=== PATIENT | female | born 1995 ===

== ENCOUNTER 2017-08-19 11:42 | Emergency (ER) | payer BC ==
--- NOTE | 2017-08-19 12:00 | ER Report ---
History and Physical Time Seen By MD: 12:00 HPI/PRUDENCE CHIEF COMPLAINT: Left wrist pain HISTORY OF PRESENT ILLNESS: 20-year-old female patient presents to emergency room with complaint of left wrist pain. Patient states she was snowboarding this morning, she states she is not very good and fell backwards trying to catch herself. She states that since incident having significant amounts of pain to the left wrist. She states she is unable to move her fingers due to the pain. Patient does have good sensation to touch. Patient has received morphine in route to the emergency room, however she rates her pain a 10 out of 10 at this time. REVIEW OF SYSTEMS: Respiratory: No cough, no dyspnea. Cardiovascular: No chest pain, no palpitations. Gastrointestinal: No vomiting, no abdominal pain. Musculoskeletal: As noted above Allergies: Coded Allergies: Penicillins (Verified Allergy, Intermediate, 08/19/17) Home Meds Active Scripts Oxycodone Hcl/Acetaminophen (PERCOCET 5-325 MG TABLET) 1 Each Tablet, 1 EACH PO Q4-6H Y for PAIN, #20 TAB Prov:KIRBY ROMNAO 08/19/17 Past Medical/Surgical History Patient has a past medical history of alcohol use. Patient has surgical history of tonsillectomy. Reviewed Nurses Notes: Yes Constitutional Vital Sign - Last 24 Hours 08/19/17 08/19/17 08/19/17 08/19/17 11:56 11:57 11:59 12:11 Temp 98.4 Pulse 82 ??? Resp 26 B/P (MAP) 120/101 120/101 (107) 153/102 (119) Pulse Ox 100 O2 Delivery Room Air 08/19/17 08/19/17 08/19/17 08/19/17 12:12 12:30 13:00 13:05 Pulse 75 ??? Resp 10 B/P (MAP) 157/80 (105) 122/82 (95) Pulse Ox 70 08/19/17 08/19/17 08/19/17 08/19/17 13:10 13:15 13:17 13:20 Pulse 87 81 ??? Resp 16 24 13 B/P (MAP) 149/89 (109) 143/81 (101) Pulse Ox 98 99 98 08/19/17 08/19/17 08/19/17 08/19/17 13:25 13:30 13:35 13:40 Pulse 93 106 112 116 Resp 15 19 15 15 B/P (MAP) 155/100 (118) 163/100 (121) 167/107 (127) 173/110 (131) Pulse Ox 99 99 99 99 08/19/17 08/19/17 08/19/17 08/19/17 13:45 13:50 13:55 14:00 Pulse 115 102 115 88 Resp 19 26 35 14 B/P (MAP) 165/107 (126) 161/102 (121) 157/94 (115) Pulse Ox 96 96 08/19/17 08/19/17 08/19/17 08/19/17 14:05 14:10 14:15 14:47 Pulse 85 82 96 Resp 10 9 14 B/P (MAP) 143/91 (108) 135/77 (96) Pulse Ox 99 99 96 08/19/17 08/19/17 15:00 15:15 Pulse 75 91 Resp 9 15 B/P (MAP) 119/67 (84) 132/77 (95) Pulse Ox 97 95 Physical Exam General Appearance: The patient is alert, has no immediate need for airway protection and no current signs of toxicity. Respiratory: Chest is non tender, lungs are clear to auscultation. Cardiac: regular rate and rhythm Gastrointestinal: Abdomen is soft and non tender, no masses, bowel sounds normal. Musculoskeletal: Neck: Neck is supple and non tender. Patient has deformity of the proximal forearm, good sensation to touch to ulnar median and radial nerves. Patient is unable to move the left hand secondary to pain. Skin: No rashes or lesions. DIFFERENTIAL DIAGNOSIS: After history and physical exam differential diagnosis was considered for fracture, sprain, dislocation. Medical Decision Making Data Points Laboratory Hematology Test 08/19/17 14:08 Human Chorionic Gonadotropin, Qual Negative (NEGATIVE) Chemistry Test 08/19/17 14:08 Human Chorionic Gonadotropin, Qual Negative (NEGATIVE) EKG/Imaging Imaging Examination: WRIST LEFT W/O CONTRAST Comparison: Radiographs earlier the same day. History: intraarticular fracture Procedure: Multiplanar noncontrast CT left wrist. One of the following dose optimization techniques was utilized in the performance of this exam: Automated exposure control; adjustment of the mA and/ or kV according to the patient's size; or use of an iterative reconstruction technique. Specific details can be referenced in the facility's radiology CT exam operational policy. Findings: Distal left radial diametaphysiscomminuted and mildly displaced intra- articular fracture. Dominant transverse oblique fracture extends through the diametaphysis to the inferior margin of the distal radioulnar joint. Radioulnar joint space is mildly widened but there is no evidence of lucy malalignment. A dominant coronal oblique fracture plane involves the dorsal metaphyseal cortex and extends into the dorsal and ulnar margin of the articular surface. This results in2 mm of articular surface incongruity. Overall, there is approximately 25% shaft width dorsal displacement of the dominant distal fracture fragment with resultant neutral angulation of the radial articular surface. Radiocarpal and intercarpal alignment is maintained. There is a mildly displaced and comminuted fracture of the ulnar styloid. The visualized carpals are intact with no carpal fracture identified. Diffuse edema of the periarticular soft tissues likely with a small amount of fluid/hemorrhage in the distal radioulnar joint and radiocarpal joint. If there is a clinical concern for internal derangement of the wrist soft tissues this would be better characterized by MRI. IMPRESSION: 1. Distal left radial diametaphysis comminuted and displaced intra-articular fractures described above. 2. Mild widening of the distal radioulnar joint but no evidence of lucy subluxation. 3. Ulnar styloid mildly comminuted and displaced fracture. Report Dictated By: Kenny Sofia MD at 08/19/2017 2:56 PM Report E-Signed By: Kenny Sofia MD at 08/19/2017 3:05 PM WRIST LEFT 2 VIEW History: Post reduction COMPARISON: Radiographs obtained earlier same date. FINDINGS: Comminuted intra-articular fracture distal radius has mildly improved alignment status post reduction and cast placement. Ulnar styloid fracture unchanged. 3 views are provided. IMPRESSION: Mild improvement in the radius fracture status post reduction and cast placement. Report Dictated By: Mingo Sharif MD at 08/19/2017 1:56 PM Report E-Signed By: Mingo Sharif MD at 08/19/2017 1:58 PM WRIST LEFT MIN 3 VIEW HISTORY: Fall with pain, snowboarding. ADDITIONAL HISTORY: None. COMPARISON: None. FINDINGS: 3 views were obtained of the left wrist. There is an extensively comminuted fractures of the distal radius with intra-articular extension. There is radial displacement of the distal fracture fragments. Fracture is impacted and there is also dorsal angulation. Ulnar styloid fracture is also present. Although incompletely imaged, the scapholunate distance may be increased which could be indicative of a ligamentous injury. Soft tissue swelling is present. There is no radiopaque foreign body. IMPRESSION: 1. Comminuted intra-articular fracture of the distal radius with radial displacement and dorsal angulation of the distal fracture fragments. There is also impaction. 2. Ulnar styloid fracture. 3. Possible widening of the scapholunate interval which may be indicative of a ligamentous injury. 4. Soft tissue swelling. Report Dictated By: Cintia Lopes MD at 08/19/2017 12:35 PM Report E-Signed By: Cintia Lopes MD at 08/19/2017 12:37 PM ED Course/Re-evaluation ED Course Patient was admitted to an exam room, history and physical were obtained. Differential diagnoses were considered. On examination patient has obvious deformity to the left wrist, she has good sensation with the ulnar, median and radial nerve. Initially patient was unable to move fingers due to pain, however on reevaluation patient did have good movement of the fingers, however it did elicit significant amounts of pain. X-ray of the wrist was performed which showed significant fracture and dislocation of the distal radius, does go into the intra-articular areas. I discussed the case with Dr. Gillespie, orthopedist, who recommended reduction, placing in a sugar tong splint. I initially had thought that the patient was from [place] and planned on having her follow-up with the orthopedic group here. However I did find out that patient lives in [place]. The wrist was reduced after the patient was moderately sedated. There was noticeable improvement when looking at the wrist. The repeat x-ray shows mild improvement in alignment it did still have some dorsal angulation. Per Dr. Gillespie's recommendation a CT scan was performed of the wrist. Which showed significant fracture. Patient was awake, alert. She is feeling ready to go home at this time. She states her pain is significantly improved. Patient has good capillary refill and pulses. Patient will be discharged home to follow- up with orthopedics in of the [facility]. Patient verbalized understanding and agreement with plan. Procedure: Procedural sedation. A pre-sedation evaluation was completed on the patient at 1305. Patient is an appropriate candidate for procedural sedation. The risks of the sedation were discussed with the patient. A time out was completed. The patient was reevaluated immediately prior to initiation of sedation. The patient was sedated with propofol and ketamine. The patient was monitored with continuous pulse oximetry and quality assurance monitor chassis. There were no complications and no significant hypoxemia. I remained at the bedside for the sedation. The total time I spent in the procedural sedation was 15 minutes. Post sedation evaluation: Patient was alert and cooperative, hemodynamically stable with appropriate respiratory status, temperature and pain control without ongoing nausea and vomiting. Procedure: Splint placement. A sugar tong splint was applied. After application of the splint I re-examined the patient. The splint was adequately immobilizing the joint and distal to the splint the patient's circulation and sensation was intact. Decision to Disposition Date: Aug 19, 2017 Decision to Disposition Time: 15:14 Depart Departure Latest Vital Signs Vital Signs Date Time Temp Pulse Resp B/P (MAP) Pulse Ox O2 Delivery O2 Flow Rate FiO2 08/19/17 15:15 91 15 132/77 (95) 95 08/19/17 11:56 98.4 Room Air Impression: Primary Impression: Left wrist fracture Condition: Improved Disposition: HOME OR SELF-CARE New Scripts Oxycodone Hcl/Acetaminophen (PERCOCET 5-325 MG TABLET) 1 Each Tablet 1 EACH PO Q4-6H Y for PAIN, #20 TAB Prov: KIRBY ROMANO 08/19/17 Patient Instructions: Wrist Fracture in Adults (ED) Additional Instructions: Limit activity by pain. Ice the wrist through the splint; 2-3 times a day for 20-30 minutes. If the splint is feeling too tight you may loosen the jessica wrap and rewrap it. Follow up with [facility], call tomorrow to make an appointment. [facility] [address] [place], [place] Keep the splint dry, wrap it with a bag and tape to keep the water out. Return to the ER with uncontrollable pain or numbness to the hand. You may take Ibuprofen as needed for pain in addition to the pain medication. Don't take any additional Tylenol while on the pain medication. Problem Qualifiers Primary Impression: Left wrist fracture Encounter type: initial encounter Fracture type: closed Qualified Codes: S62.102A - Fracture of unspecified carpal bone, left wrist, initial encounter for closed fracture KIRBY ROMANO Aug 19, 2017 12:00
[2017-08-19] MEDS ORDERED: NS(*) 0.9% 1000 ML BAG 1,000 ML IV ONE (12:05)
[2017-08-19] MEDS ORDERED: HYDROmorphone(ER ONLY) 1 MG/ML IVP ONE (12:05)
--- NOTE | 2017-08-19 12:41 | RADIOLOGY IMAGING REPORT ---
FACILITY: [facility] [place] PATIENT NAME: Jeanna Griffiths : 1995 MR: [id number] V: [id number] EXAM DATE: ORDERING PHYSICIAN: KIRBY ROMANO TECHNOLOGIST: Location: [facility] [place] Patient: Jeanna Griffiths : 1995 Visit/Account:[id number] Date of Sevice: 08/19/2017 WRIST LEFT MIN 3 VIEW HISTORY: Fall with pain, snowboarding. ADDITIONAL HISTORY: None. COMPARISON: None. FINDINGS: 3 views were obtained of the left wrist. There is an extensively comminuted fractures of the distal r adius with intra-articular extension. There is radial displacement of the distal fracture fragments. Fracture is impacted and there is also dorsal angulation. Ulnar styloid fracture is also present. Although incompletely imaged, the scapholunate distance may be increased which could be indicative of a ligamentous injury. Soft tissue swelling is present. There is no radiopaque foreign body. IMPRESSION: 1. Comminuted intra-articular fracture of the distal radius with radial displacement and dorsal angul ation of the distal fracture fragments. There is also impaction. 2. Ulnar styloid fracture. 3. Possible widening of the scapholunate interval which may be indicative of a ligamentous injury. 4. Soft tissue swelling. Report Dictated By: Cintia Lopes MD at 08/19/2017 12:35 PM Report E-Signed By: Cintia Lopes MD at 08/19/2017 12:37 PM WSN:[id number]
[2017-08-19] MEDS ORDERED: LORazepam 2 MG/ML VIAL IVP ONE (13:05)
[2017-08-19] MEDS ORDERED: ONDANSETRON 4 MG/2 ML VIAL IVP ONE (13:05)
[2017-08-19] MEDS ORDERED: PROPOFOL EMUL 10MG/ML 20 ML VL IVP ONE (13:05)
[2017-08-19] MEDS ORDERED: KETAMINE HCL 500 MG/5 ML VIAL IVP ONE (13:05)
--- NOTE | 2017-08-19 14:02 | RADIOLOGY IMAGING REPORT ---
FACILITY: [facility] PATIENT NAME: Jeanna Griffiths : 1995 MR: [id number] V: [id number] EXAM DATE: ORDERING PHYSICIAN: KIRBY ROMANO TECHNOLOGIST: Location: [facility] - [place] Patient: Jeanna Griffiths : 1995 Visit/Account:[id number] Date of Sevice: 08/19/2017 WRIST LEFT 2 VIEW History: Post reduction COMPARISON: Radiographs obtained earlier same date. FINDINGS: Comminuted intra-articular fracture distal radius has mildly improved alignment status post reduction and cast placement. Ulnar styloid fracture unchanged. 3 views are provided. IMPRESSION: Mild improvement in the radius fracture status post reduction and cast placement. Report Dictated By: Mingo Sharif MD at 08/19/2017 1:56 PM Report E-Signed By: Mingo Sharif MD at 08/19/2017 1:58 PM WSN:[id number]
--- NOTE | 2017-08-19 15:09 | RADIOLOGY IMAGING REPORT ---
FACILITY: [facility] - [place] PATIENT NAME: Jeanna Griffiths : 1995 MR: [id number] V: [id number] EXAM DATE: [id number] ORDERING PHYSICIAN: KIRBY ROMANO TECHNOLOGIST: Location: [facility] [place] Patient: Jeanna Griffiths : 1995 Visit/Account:[id number] Date of Sevice: 08/19/2017 Examination: WRIST LEFT W/O CONTRAST Comparison: Radiographs earlier the same day. History: intraarticular fracture Procedure: Multiplanar noncontrast CT left wrist. One of the following dose optimization techniques was utilized in the performance of this exam: Autom ated exposure control; adjustment of the mA and/or kV according to the patient's size; or use of an i terative reconstruction technique. Specific details can be referenced in the facility's radiology C T exam operational policy. Findings: Distal left radial diametaphysiscomminuted and mildly displaced intra-articular fracture. D ominant transverse oblique fracture extends through the diametaphysis to the inferior margin of the d istal radioulnar joint. Radioulnar joint space is mildly widened but there is no evidence of lucy ma lalignment. A dominant coronal oblique fracture plane involves the dorsal metaphyseal cortex and exte nds into the dorsal and ulnar margin of the articular surface. This results in2 mm of articular surfa ce incongruity. Overall, there is approximately 25% shaft width dorsal displacement of the dominant d istal fracture fragment with resultant neutral angulation of the radial articular surface. Radiocarpal and intercarpal alignment is maintained. There is a mildly displaced and comminuted fract ure of the ulnar styloid. The visualized carpals are intact with no carpal fracture identified. Diffuse edema of the periarticular soft tissues likely with a small amount of fluid/hemorrhage in the distal radioulnar joint and radiocarpal joint. If there is a clinical concern for internal derangeme nt of the wrist soft tissues this would be better characterized by MRI. IMPRESSION: 1. Distal left radial diametaphysis comminuted and displaced intra-articular fractures described abov e. 2. Mild widening of the distal radioulnar joint but no evidence of lucy subluxation. 3. Ulnar styloid mildly comminuted and displaced fracture. Report Dictated By: Kenny Sofia MD at 08/19/2017 2:56 PM Report E-Signed By: Kenny Sofia MD at 08/19/2017 3:05 PM WSN:[id number]
[2017-08-19 15:15] VITALS: BP 132/77
[2017-08-19] MEDS ORDERED: OXYC-865 PO (15:16)
== END 2017-08-19 15:36 | disposition home or self-care (01) ==
LOC: ER 11:58
DX: S62.102A Fracture of unspecified carpal bone, left wrist, initial encounter for closed fracture (principal); W18.30XA Fall on same level, unspecified, initial encounter; Y93.23 Activity, snow (alpine) (downhill) skiing, snowboarding, sledding, tobogganing and snow tubing
CPT/HCPCS: 25605; 73100; 73110; 73200; 84703; 99284; J1170; J2060; J2405; J2704; J7030; 96361; 96374; 96375

== ENCOUNTER → 2017-08-19 | Outpatient (CLI) | payer BC ==
[~2017-08-19] MED LIST: OXYC-865 PO
== END ==
LOC: AMB 10:40
PROVIDERS: ATTEND Nurse Practitioner
DX: M25.532 Pain in left wrist (principal); W00.0XXA Fall on same level due to ice and snow, initial encounter; Y93.23 Activity, snow (alpine) (downhill) skiing, snowboarding, sledding, tobogganing and snow tubing; Y92.838 Other recreation area as the place of occurrence of the external cause
CPT/HCPCS: A0425; A0433